=== PATIENT | female | born 1995 ===

== ENCOUNTER 2024-06-04 11:16 | Inpatient (IN) | payer BC ==
[2024-06-12] MEDS ORDERED: hydrALAZINE 20 MG/ML VIAL SLOW IVP PRN (16:07)
[2024-06-12] MEDS ORDERED: Carboprost 250 MCG/ML AMP IM PRN (16:07)
[2024-06-12] MEDS ORDERED: HYDROcodone/Acetaminophen 5/325 mg Tablet PO PRN ×2 (16:07)
[2024-06-12] MEDS ORDERED: Tranexamic Acid 1,000 MG/10 ML VIAL IVP PRN (16:07)
[2024-06-12] MEDS ORDERED: fentaNYL 50 mcg/mL 1 mL Vial SLOW IVP PRN (16:07)
[2024-06-12] MEDS ORDERED: Promethazine HCl 25 MG/ML VIAL IM PRN ×2 (16:07→23:19)
[2024-06-12] MEDS ORDERED: Ibuprofen 800 MG TAB PO PRN (16:07)
[2024-06-12] MEDS ORDERED: Diphenoxylate HCl/Atropine Tablet PO PRN ×2 (16:07)
[2024-06-12] MEDS ORDERED: Ondansetron PF 4 MG/2 ML Vial IVP PRN ×2 (16:07→23:19)
[2024-06-12] MEDS ORDERED: Lidocaine 1% (PF) 30 ML VIAL SC PRN (16:07)
[2024-06-12 16:11] VITALS: BMI 34.9
[2024-06-12] MEDS ORDERED: Oxytocin 30 units/NS 500 ML 500 ML IV SCH (16:15)
[2024-06-12] MEDS: Misoprostol 100 MCG TAB PO SCH (16:35)
[2024-06-12 17:27] LABS: Hematocrit 37.9 % (34.9-44.5); Hemoglobin 13.3 g/dL (12.0-15.5); Mean Corpuscular HGB CONC 35.1 g/dL (32.0-36.0); Mean Corpuscular Hemoglobin 30.9 pg (27.0-33.0); Mean Corpuscular Volume 87.9 fL (81.6-98.3); Mean Platelet Volume 12.6 fL (7.4-10.4); Platelet Count 119 10x3/uL (150-450); RBC Distribution Width 12.3 % (11.5-14.5); Red Blood Cell (RBC) Count 4.31 10x6/uL (3.90-5.03); White Blood Cell (WBC) Count 9.7 10x3/uL (3.5-10.5)
[2024-06-12 17:39] LABS: HBsAg Index 0.26 S/CO (0-0.99); Hep B Surf Ag - L&D Non-Reactive S/CO (NonReactive)
[2024-06-12 17:40] LABS: Syphilis Antibody Nonreactive (Nonreactive)
[2024-06-12] MEDS: fentaNYL/Ropivacaine Epidural 100 ML ONE (22:41)
[2024-06-12] MEDS: Lactated Ringer's 1,000 ML IV PRN (22:41)
[2024-06-12] MEDS ORDERED: Naloxone HCl 0.4 mg/ml Vial IVP PRN ×2 (23:19)
[2024-06-12] MEDS ORDERED: ePHEDrine Sulfate 50 MG/10 ML VIAL SLOW IVP PRN (23:19)
[2024-06-12] MEDS ORDERED: Lactated Ringer's 500 ML IV PRN (23:19)
[2024-06-12] MEDS ORDERED: diphenhydrAMINE 50 MG/ML VIAL IVP PRN (23:19)
[2024-06-12] MEDS ORDERED: Moisturizing Cream (Eucerin) 113 GM JAR TOP PRN (23:19)
[2024-06-12] MEDS ORDERED: Communication Order-Pharmacy FS SCH (23:30)
[2024-06-12] MEDS ORDERED: fentaNYL 2 mcg/Ropivacaine 0.2% Epidural 100 ML CADD EPIDURAL SCH (23:30)
[2024-06-13] MEDS: Oxytocin 30 units/NS 500 ML 500 ML IV SCH (04:40)
[2024-06-13] MEDS: Misoprostol 200 MCG TAB PR PRN (04:53)
[2024-06-13] MEDS: Methylergonovine 0.2 MG/ML VIAL IM PRN (04:53)
[2024-06-13] MEDS: Acetaminophen 325 MG TAB PO PRN (05:34)
[2024-06-13] MEDS ORDERED: Oxytocin 30 units/NS 500 ML 500 ML IV SCH (07:32)
[2024-06-13] MEDS ORDERED: Misoprostol 200 MCG TAB VAG PRN (07:32)
[2024-06-13] MEDS ORDERED: hydrALAZINE 20 MG/ML VIAL SLOW IVP PRN (07:32)
[2024-06-13] MEDS ORDERED: Milk Of Magnesia 30 ML UDCUP PO PRN (07:32)
[2024-06-13] MEDS ORDERED: HYDROcodone/Acetaminophen 5/325 mg Tablet PO PRN ×2 (07:32)
[2024-06-13] MEDS ORDERED: Bisacodyl 10 MG SUPP PR PRN (07:32)
[2024-06-13 08:29] LABS: MDiff Complete? YES; Mean Corpuscular HGB CONC 35.3 g/dL (32.0-36.0); Mean Corpuscular Volume 87.9 fL (81.6-98.3); Mean Platelet Volume 12.2 fL (7.4-10.4); Platelet Count 95 10x3/uL (150-450); RBC Distribution Width 12.4 % (11.5-14.5); Red Blood Cell (RBC) Count 3.87 10x6/uL (3.90-5.03); White Blood Cell (WBC) Count 21.5 10x3/uL (3.5-10.5)
[2024-06-13] MEDS: Ferrous Sulfate 325 MG TAB PO SCH (08:36)
[2024-06-13] MEDS: Boostrix 0.5 ML (Tdap) VIAL (>/=7 yrs of age) IM ONE (08:36)
[2024-06-13 09:09] LABS: Band 9 % (5-11); Lymphocytes 12 % (21-51); Monocytes 5 % (0-10); Neutrophil 74 % (42-75)
[2024-06-13 09:11] LABS: Large Platelets SLIGHT (None Seen); Platelet Adequacy Comment Appears Decreased; RBC Morph Comment Within Normal Limits
[2024-06-13 09:31] LABS: PTT 31.5 sec (22.0-33.0); Prothrombin Time 10.4 sec (9.5-12.1)
[2024-06-13 10:04] LABS: D-Dimer Test 6.45 mcg/mL (0.19-0.50)
[2024-06-13] MEDS: Prenatal Vitamin 1 TAB PO SCH (11:59)
[2024-06-13] MEDS: Ibuprofen 800 MG TAB PO SCH (11:59)
[2024-06-13] MEDS: Docusate 100 MG CAP PO SCH (11:59)
[2024-06-13] MEDS: Piperacillin/Tazobactam 3.375 GM in Sodium Chloride 0.9% 100 ML IVPB SCH (12:09)
[2024-06-13] MEDS ORDERED: Bupivacaine 0.25% HCL 30 ML VIAL ONE (13:00)
[2024-06-13] MEDS ORDERED: Bupivacaine HCl 0.5%/Epinephrine 1:200,000/PF 30 ml Vial ONE (13:00)
[2024-06-15 08:24] VITALS: BP 95/53; TEMP 98.2
[2024-06-15] MEDS: Benzocaine-Menthol 82.5 ML CAN TOP PRN (16:34)
== END 2024-06-15 16:40 | disposition home or self-care (01) | DRG 807 ==
LOC: CSHLD 06-12 14:26 → CSHPP 06-13 09:56
PROVIDERS: ADMIT Obstetrics & Gynecology; ATTEND Obstetrics & Gynecology
PROC: 10E0XZZ Delivery of Products of Conception, External Approach (ICD-10-PCS; principal; 2024-06-13)
PROC: 0KQM0ZZ Repair Perineum Muscle, Open Approach (ICD-10-PCS; 2024-06-13)
DX: O42.02 Full-term premature rupture of membranes, onset of labor within 24 hours of rupture (principal); Z37.0 Single live birth; Z3A.41 41 weeks gestation of pregnancy; O48.0 Post-term pregnancy; O70.1 Second degree perineal laceration during delivery; O32.8XX0 Maternal care for other malpresentation of fetus, not applicable or unspecified
CPT/HCPCS: 36415; 51702; 85025; 85027; 85049; 85300; 85362; 85384; 85461; 85610; 85730; 86780; 86850; 86900; 86901; 87340; 90384; 96372; J0665; J2210; J2543; J2590; J7120